=== PATIENT | female | born 1995 | race African-American/Black ===

== ENCOUNTER 2019-12-30 12:44 | Emergency (ER) | payer MEDICAID ==
[~2019-12-30] VITALS: Ht 152.4 cm; Wt 136.0 kg
[2019-12-30 13:24] VITALS: BP 200/109
== END 2019-12-30 15:45 | disposition home or self-care (01) ==
LOC: ER 12:44
DX: Z03.818 Encounter for observation for suspected exposure to other biological agents ruled out (principal); Z71.89 Other specified counseling; R03.0 Elevated blood-pressure reading, without diagnosis of hypertension
CPT/HCPCS: 99283